=== PATIENT | male | born 1985 | race Two or more races ===

== ENCOUNTER 2020-04-22 07:41 | Day surgery (SDC) | payer OTHER ==
[2020-04-22] VITALS (13 sets, daily range): BP systolic 95–140; BP diastolic 50–91
[~2020-04-22] VITALS: Ht 185.4 cm; Wt 108.9 kg
[~2020-04-22 07:41] MED LIST: ALPRAZOLAM1 MG ORAL; LEVOTHYROXINE125 MCG ORAL; ceFAZolin 1gm IVPB IVPB ONE; celeBREX 200mg Cap **SURGERY PATIENTS ONLY ORAL ONE; oxyCONTIN 20mg tab ORAL ONE
[2020-04-22] MEDS ORDERED: celeBREX 200mg Cap **SURGERY PATIENTS ONLY ORAL ONE (08:31)
[2020-04-22] MEDS ORDERED: oxyCONTIN 20mg tab ORAL ONE (08:31)
[2020-04-22] MEDS ORDERED: EPINEPHrine 1mg/1ml Amp ONE ×2 (10:17→10:18)
[2020-04-22] MEDS ORDERED: Duramorph PF 5mg/10ml amp ONE (10:17)
[2020-04-22] MEDS ORDERED: Kenalog-40 1ml Vial ONE (10:17)
[2020-04-22] MEDS ORDERED: Ketorolac 30mg Inj ONE (10:17)
[2020-04-22] MEDS ORDERED: Rocuronium Bromide 100mg/10ml Inj IV ONE (10:48)
[2020-04-22] MEDS ORDERED: Bupivacaine 0.25% Inj 30ml INJ ONE (10:48)
[2020-04-22] MEDS ORDERED: Midazolam 2mg/2ml Inj ONE (10:49)
[2020-04-22] MEDS ORDERED: fentaNYL 100 mcg/2 mL IV ONE (10:49)
[2020-04-22] MEDS ORDERED: Metoclopramide 10mg/2ml Inj ONE (11:00)
[2020-04-22] MEDS ORDERED: Sterile Water Irrig 1000ml IRRIG ONE (11:00)
[2020-04-22] MEDS ORDERED: LR 1000ml ONE (11:00)
[2020-04-22] MEDS ORDERED: NS Irrig 2000ml IRRIG ONE ×3 (11:20→11:55)
[2020-04-22] MEDS ORDERED: Lidocaine 1% MPF 10mg/ml 5ml ONE (11:27)
[2020-04-22] MEDS ORDERED: Ropivacaine 5mg/ml Vial 20ml INJ ONE (11:27)
--- NOTE | 2020-04-22 11:49 | Anethesia Preoperative Eval ---
Anesthesia Pre-op PMH/ROS General Date of Evaluation: Apr 22, 2020 Time of Evaluation: 11:00 Anesthesiologist: jennifer ASA Score: ASA 2 Mallampati Score Class I : Soft palate, uvula, fauces, pillars visible Class II: Soft palate, uvula, fauces visible Class III: Soft palate, base of uvula visible Class IV: Only hard plate visible Mallampati Classification: Class III Surgeon: [email or web address] Diagnosis: shoulder pain Surgical Procedure: right shoulder arthroscopy Anesthesia History: none Family History: no anesthesia problems Allergies: Coded Allergies: No Known Allergies (Unverified , 04/19/20) Medications: see eMAR Patient NPO?: Yes NPO Date: Apr 22, 2020 NPO Time: 00:01 Past Medical History Cardiovascular: Denies: HTN, CAD, [place], valve dz, arrhythmia, other Pulmonary: Denies: asthma, COPD, REAGAN, other Gastrointestinal/Genitourinary: Denies: GERD, CRI, ESRD, other Neurologic/Psychiatric: Denies: dementia, CVA, depression/anxiety, TIA, other Endocrine: Reports: hypothyroidism; Denies: DM, steroids, other HEENT: Denies: cataract (L), cataract (R), glaucoma, MILLE LACS (L), MILLE LACS (R), other Hematology/Immune: Denies: anemia, DVT, bleeding disorder, other Musculoskeletal/Integumentary: Denies: OA, RA, DJD, DDD, edema, other Other: obesity PSxH Narrative: none Anesthesia Pre-op Phys. Exam Physician Exam Last Vital Signs Date Time Temp Pulse Resp B/P (MAP) Pulse Ox O2 Delivery O2 Flow Rate FiO2 04/22/20 08:20 Room Air 04/22/20 08:13 98.4 56 18 135/76 98 Constitutional: NAD Neurologic: CN 2-12 intact Cardiovascular: RRR Respiratory: CTA Airway Exam Mallampati Classification 2 Mallampati Score: Class II MO: full ROM: full Dentures: no upper, no lower Anesthesia Pre-op A/P Studies Pre-op Studies: EKG - sr Risk Assessment & Plan Assessment: covid neg Plan: general and ISB Status Change Before Surgery: No Pre-Antibiotics Drug: ancef Given Within 1 Hr of Incision: Yes Time Given: 11:05 Angela Senior CRNA Apr 22, 2020 11:49
[2020-04-22] MEDS ORDERED: Hydromorphone 0.5mg/0.5ml inj IVP PRN (12:00)
[2020-04-22] MEDS ORDERED: fentaNYL 100 mcg/2 mL IV PRN (12:00)
[2020-04-22] MEDS ORDERED: Metoclopramide 10mg/2ml Inj IVP PRN (12:00)
[2020-04-22] MEDS ORDERED: Glycopyrrolate 0.2mg/ml 1ml Vial ONE (12:12)
[2020-04-22] MEDS ORDERED: Neostigmine 1mg/ml 10ml Inj ONE (12:12)
--- NOTE | 2020-04-22 12:40 | Immediate Post-Op Evaluation ---
Immediate Post-Op Evalulation Immediate Post-Op Evalulation Procedure: right shoulder arthroscopy; SLAP repair Date of Evaluation: Apr 22, 2020 Time of Evaluation: 12:39 IV Fluids: 800 Blood Pressure Systolic: 96 Blood Pressure Diastolic: 58 Pulse Rate: 55 Respiratory Rate: 16 O2 Sat by Pulse Oximetry: 98 Temperature (Fahrenheit): 97.3 Nausea: No Vomiting: No Complications none Patient Status: awake, reacts, patent Hydration Status: adequate Drug: ancef Given Within 1 Hr of Incision: Yes Time Given: 11:20 Angela Senior CRNA Apr 22, 2020 12:40
--- NOTE | 2020-04-22 13:55 | 48 Hour Post Anesthesia Eval ---
Post Anesthesia Evaluation Procedure: right shoulder arthroscopy; SLAP repair Date of Evaluation: Apr 22, 2020 Time of Evaluation: 13:54 Blood Pressure Systolic: 115 0: 65 Pulse Rate: 54 Respiratory Rate: 14 O2 Sat by Pulse Oximetry: 98 Airway: patent Nausea: No Vomiting: No Pain Intensity: 0 Hydration Status: adequate Cardiopulmonary Status: STABLE Mental Status/LOC: patient returned to baseline Post-Anesthesia Complications: NONE Follow-up care needed: N/A Angela Senior CRNA Apr 22, 2020 13:55
--- NOTE | 2020-04-22 19:45 | Operative Note - Dictated ---
DATE OF OPERATION: 04/22/2020 PREOPERATIVE DIAGNOSIS: Right shoulder internal derangement secondary to possible SLAP tear/labral tear. POSTOPERATIVE DIAGNOSES: 1. Grade 3 superior labral tear. 2. Right shoulder bursitis/impingement syndrome. PROCEDURE: 1. Right shoulder diagnostic arthroscopy extensive intraarticular debridement. 2. Right shoulder repair of SLAP tear. 3. Right shoulder subacromial decompression bursectomy. SURGEON: Mart Shanks MD. ANESTHESIA: Interscalene with general. INDICATION FOR PROCEDURE: Patient is a pleasant gentleman, who has had progressive right shoulder pain. Patient subsequently failed conservative treatment, elected to undergo right shoulder arthroscopy and possible labral repair versus debridement, concurrent subacromial decompression bursectomy. Risks, limitations, expectations, complications of procedure were discussed in detail. All questions addressed. DESCRIPTION OF PROCEDURE: After informed consent was obtained, patient was brought to the operating room. Patient was placed under interscalene general anesthesia. Right shoulder was prepped and draped in sterile manner. Time-out was performed. An inferolateral stab incision was then made. Trocar was introduced into the glenohumeral joint. Systematic tour of the shoulder was performed. There was some chondral damage in the anterior labrum. There was pretty attenuation of the anterior labrum extending superiorly. The portion of the superior labrum was subluxed into the joint. At this point, the trocar was placed through the rotator interval. The superior margin of the glenoid was debrided. [place] was then placed to secure the superior labrum. Once this was done, the superior labrum was intact. anterior labrum, there was a band of anterior labrum, which was not attached to the anterior surface of the glenoid, but it appeared more of anatomic variant and therefore formal fixation was not required and the superior labrum was addressed. At this point, the camera was placed in subacromial space. Complete bursectomy was performed. Undersurface of the acromion was identified. Acromioplasty was started from lateral to medial completed from posterior to anterior. Once that was done, the instruments were removed. Portal sites were closed with 3-0 Monocryl sutures. Steri-Strips and sterile dressings were applied. ESTIMATED BLOOD LOSS: None. COMPLICATIONS: None. SPECIMENS: None. Mart Shanks M.D. DR: TOÑA JOB#: [id number] CC:
--- NOTE | 2020-04-25 14:36 | Pre-Procedure Note/Attestation ---
Pre-Procedure Note/Attestation Complete Prior to Procedure Planned Procedure: right Procedure Narrative: shoulder, sad, slap tear Indications for Procedure Pre-Operative Diagnosis: right shoulder slap tear, impingement Attestation I attest that I discussed the nature of the procedure; its benefits; risks and complications; and alternatives (and the risks and benefits of such alternatives ), prior to the procedure, with the patient (or the patient's legal medical office representative). I attest that, if there was a reasonable possibility of needing a blood transfusion, the patient (or the patient's legal medical office representative) was given the [facility] standardized written summary, pursuant to the Karri Janes Blood Safety Act ([place] Health and Safety Code # 1645, as amended). I attest that I re-evaluated the patient just prior to the surgery and that there has been no change in the patient's H&P, except as documented below: Mart Shanks MD Apr 25, 2020 14:36
== END 2020-04-22 15:45 | disposition home or self-care (01) ==
LOC: SUR 07:41
DX: S43.431A Superior glenoid labrum lesion of right shoulder, initial encounter (principal); M75.41 Impingement syndrome of right shoulder; M71.9 Bursopathy, unspecified; X58.XXXA Exposure to other specified factors, initial encounter; Y92.9 Unspecified place or not applicable; E66.9 Obesity, unspecified; Z68.31 Body mass index [BMI] 31.0-31.9, adult
CPT/HCPCS: 29807; 29823; 94003; C1713; J0171; J0690; J1885; J2250; J2405; J2704; J2710; J2765; J2795; J3010; J3301; J3490; J7120; 94150